=== PATIENT | male | born 1950 | race Caucasian/White ===

== ENCOUNTER 2018-01-29 15:46 | Inpatient (IN) | payer MEDICARE, OTHER ==
[2018-01-29 17:23] LABS: BASO % 0.2 % (0.0-1.0); HEMATOCRIT 29.8 % (42.0-52.0); HEMOGLOBIN 10.2 g/dl (14.0-18.0); LYMPH # 1.9 10^3/uL (1.5-4.5); MEAN CORPUSCULAR HEMOGLOBIN 33.1 pg (27.0-33.0); MEAN CORPUSCULAR HGB CONC 34.2 g/dl (32.0-36.5); MEAN CORPUSCULAR VOLUME 96.8 fl (80.0-96.0); MONO # 1.2 10^3/uL (0.0-0.8); NEUTROPHILS # 15.8 10^3/uL (1.8-7.7); NEUTROPHILS % 81.8 % (36.0-66.0); PLATELET COUNT, AUTOMATED 386 10^3/uL (150-450); RED BLOOD COUNT 3.08 10^6/uL (4.30-6.10); RED CELL DISTRIBUTION WIDTH 14.7 % (11.5-14.5); WHITE BLOOD COUNT 19.3 10^3/uL (4.0-10.0)
[2018-01-29 17:34] LABS: ANION GAP 15 MEQ/L (8-16); BLOOD UREA NITROGEN 82 MG/DL (7-18); CALCIUM LEVEL 8.5 MG/DL (8.8-10.2); CARBON DIOXIDE LEVEL 20 MEQ/L (21-32); CHLORIDE LEVEL 98 MEQ/L (98-107); CREATININE FOR GFR 6.14 MG/DL (0.70-1.30); GLOMERULAR FILTRATION RATE 9.7 (>49); GLUCOSE, FASTING 53 MG/DL (70-100); POTASSIUM SERUM 4.1 MEQ/L (3.5-5.1); SODIUM LEVEL 133 MEQ/L (136-145)
[2018-01-29] MEDS: NS 1,000 ML IV ×3 (18:02→21:25)
[2018-01-29 18:22] LABS: ALBUMIN 2.8 GM/DL (3.2-5.2); ALKALINE PHOSPHATASE 83 U/L (45-117); ALT/SGPT 132 U/L (12-78); AST/SGOT 151 U/L (7-37); BILIRUBIN,DIRECT 0.2 MG/DL (0.0-0.2); BILIRUBIN,TOTAL 0.4 MG/DL (0.2-1.0); TOTAL PROTEIN 6.3 GM/DL (6.4-8.2)
[2018-01-29 18:36] LABS: INR 1.15; PROTHROMBIN TIME 14.9 SECONDS (12.4-14.5)
[2018-01-29] MEDS ORDERED: ONDANSETRON 4MG/2ML VIAL (J2405) IV (19:45)
[2018-01-29] MEDS: NS 500 ML IV (20:00)
[2018-01-29] MEDS ORDERED: DEXTROSE 50% 50 ML SYRINGE IV (20:30)
[2018-01-29] MEDS ORDERED: NICOTINE 14 MG/24 HR TRANSDERMAL TD (20:30)
[2018-01-29] MEDS ORDERED: GLUCOSE 4 GM CHEW TABLET PO (20:30)
[2018-01-29] MEDS ORDERED: GLUCAGON FOR INJ 1 MG VIAL (J1610) SC (20:30)
[2018-01-29] MEDS: GABAPENTIN 300 MG CAP PO (23:33)
[2018-01-29] MEDS: HEPARIN SOD (PORCINE) 5000 UNITS/ML VIAL SC (23:34)
[2018-01-30] MEDS: NS 1,000 ML IV (05:44)
[2018-01-30 06:33] LABS: HEMATOCRIT 27.6 % (42.0-52.0); HEMOGLOBIN 9.3 g/dl (14.0-18.0); MEAN CORPUSCULAR HEMOGLOBIN 32.7 pg (27.0-33.0); MEAN CORPUSCULAR HGB CONC 33.7 g/dl (32.0-36.5); MEAN CORPUSCULAR VOLUME 97.2 fl (80.0-96.0); PLATELET COUNT, AUTOMATED 381 10^3/uL (150-450); RED BLOOD COUNT 2.84 10^6/uL (4.30-6.10); RED CELL DISTRIBUTION WIDTH 14.6 % (11.5-14.5); WHITE BLOOD COUNT 19.2 10^3/uL (4.0-10.0)
[2018-01-30 06:54] LABS: ALBUMIN 2.3 GM/DL (3.2-5.2); ALBUMIN/GLOBULIN RATIO 0.55 (1.00-1.93); ALKALINE PHOSPHATASE 88 U/L (45-117); ALT/SGPT 146 U/L (12-78); ANION GAP 12 MEQ/L (8-16); AST/SGOT 145 U/L (7-37); BILIRUBIN,DIRECT 0.2 MG/DL (0.0-0.2); BILIRUBIN,TOTAL 0.4 MG/DL (0.2-1.0); BLOOD UREA NITROGEN 83 MG/DL (7-18); CALCIUM LEVEL 8.1 MG/DL (8.8-10.2); CARBON DIOXIDE LEVEL 21 MEQ/L (21-32); CHLORIDE LEVEL 103 MEQ/L (98-107); CREATININE FOR GFR 4.81 MG/DL (0.70-1.30); GLOMERULAR FILTRATION RATE 12.9 (>49); GLUCOSE, FASTING 46 MG/DL (70-100); MAGNESIUM LEVEL 2.5 MG/DL (1.8-2.4); POTASSIUM SERUM 3.5 MEQ/L (3.5-5.1); SODIUM LEVEL 136 MEQ/L (136-145); TOTAL PROTEIN 6.5 GM/DL (6.4-8.2)
[2018-01-30 08:03] LABS: BEDSIDE GLUCOSE 55 MG/DL (80-115)
[2018-01-30 08:25] LABS: LACTIC ACID SEPSIS PROTOCOL 0.7 MMOL/L (0.4-2.0)
[2018-01-30] MEDS: CLOPIDOGREL 75 MG TAB PO (09:00)
[2018-01-30] MEDS: ATENOLOL 25 MG TAB PO (09:00)
[2018-01-30] MEDS: EZETIMIBE 10 MG TAB (ZETIA) PO (09:00)
[2018-01-30] MEDS: ATORVASTATIN 20 MG TAB PO (09:11)
[2018-01-30] MEDS: HEPARIN SOD (PORCINE) 5000 UNITS/ML VIAL SC ×2 (09:11→20:11)
[2018-01-30] MEDS: GABAPENTIN 300 MG CAP PO ×3 (09:11→20:12)
[2018-01-30] MEDS: TAMSULOSIN 0.4 MG CAP PO (09:11)
[2018-01-30] MEDS ORDERED: CEFTAROLINE FOSAMIL 600 MG in D5W MINI-BAG PLUS 50 ML IV (11:30)
[2018-01-30] MEDS: CEFTAROLINE FOSAMIL 300 MG in D5W 50 ML IV (13:00)
[2018-01-30] MEDS: ASPIRIN 81 MG ENTERIC TAB PO (14:44)
[2018-01-30] MEDS: amLODIPine 10 MG TAB PO (14:45)
[2018-01-30 15:29] LABS: HEPATITIS B SURFACE ANTIGEN NEGATIVE (NEGATIVE)
[2018-01-30 15:56] LABS: HEPATITIS B CORE ANTIBODY IGM NEGATIVE (NEGATIVE)
[2018-01-30 15:59] LABS: HEPATITIS A ANTIBODY IGM NEGATIVE (NEGATIVE)
[2018-01-30 17:12] LABS: BEDSIDE GLUCOSE 216 MG/DL (80-115)
[2018-01-30 17:20] LABS: BEDSIDE GLUCOSE 180 MG/DL (80-115)
[2018-01-30 17:20] LABS: BEDSIDE GLUCOSE 95 MG/DL (80-115)
[2018-01-30] MEDS: POTASSIUM CHLORIDE 10 MEQ SR TABLET PO (20:11)
[2018-01-30] MEDS: FINASTERIDE 5 MG TAB PO (20:12)
[2018-01-30] MEDS: PERCOCET 5MG/325MG TAB PO (20:12)
[2018-01-30] MEDS ORDERED: diphenhydrAMINE 25 MG CAP PO (21:00)
[2018-01-30 21:44] LABS: BEDSIDE GLUCOSE 321 MG/DL (80-115)
[2018-01-31] MEDS: CEFTAROLINE FOSAMIL 300 MG in D5W 50 ML IV (00:09)
[2018-01-31 04:03] LABS: HEMATOCRIT 28.9 % (42.0-52.0); HEMOGLOBIN 9.7 g/dl (14.0-18.0); MEAN CORPUSCULAR HEMOGLOBIN 32.8 pg (27.0-33.0); MEAN CORPUSCULAR HGB CONC 33.6 g/dl (32.0-36.5); MEAN CORPUSCULAR VOLUME 97.6 fl (80.0-96.0); PLATELET COUNT, AUTOMATED 443 10^3/uL (150-450); RED BLOOD COUNT 2.96 10^6/uL (4.30-6.10); RED CELL DISTRIBUTION WIDTH 14.7 % (11.5-14.5); WHITE BLOOD COUNT 19.3 10^3/uL (4.0-10.0)
[2018-01-31 04:23] LABS: ALBUMIN 2.3 GM/DL (3.2-5.2); ALKALINE PHOSPHATASE 97 U/L (45-117); ALT/SGPT 152 U/L (12-78); ANION GAP 10 MEQ/L (8-16); AST/SGOT 111 U/L (7-37); BILIRUBIN,DIRECT 0.2 MG/DL (0.0-0.2); BILIRUBIN,TOTAL 0.4 MG/DL (0.2-1.0); BLOOD UREA NITROGEN 79 MG/DL (7-18); CALCIUM LEVEL 8.4 MG/DL (8.8-10.2); CARBON DIOXIDE LEVEL 24 MEQ/L (21-32); CHLORIDE LEVEL 104 MEQ/L (98-107); CREATININE FOR GFR 2.31 MG/DL (0.70-1.30); GLUCOSE, FASTING 225 MG/DL (70-100); MAGNESIUM LEVEL 2.9 MG/DL (1.8-2.4); PHOSPHORUS LEVEL 3.1 MG/DL (2.5-4.9); POTASSIUM SERUM 3.8 MEQ/L (3.5-5.1); SODIUM LEVEL 138 MEQ/L (136-145); TOTAL PROTEIN 6.9 GM/DL (6.4-8.2)
[2018-01-31] MEDS: ASCORBIC ACID 500 MG TAB PO (07:53)
[2018-01-31] MEDS: TAMSULOSIN 0.4 MG CAP PO (07:53)
[2018-01-31] MEDS: ATORVASTATIN 20 MG TAB PO (07:53)
[2018-01-31] MEDS: ASPIRIN 81 MG ENTERIC TAB PO (07:53)
[2018-01-31] MEDS: FENOFIBRATE 145 MG TAB (TRICOR) PO (07:54)
[2018-01-31] MEDS: GABAPENTIN 300 MG CAP PO ×3 (07:54→20:18)
[2018-01-31] MEDS: ATENOLOL 25 MG TAB PO (07:54)
[2018-01-31] MEDS: EZETIMIBE 10 MG TAB (ZETIA) PO (07:54)
[2018-01-31] MEDS: amLODIPine 10 MG TAB PO (07:55)
[2018-01-31] MEDS: HEPARIN SOD (PORCINE) 5000 UNITS/ML VIAL SC ×2 (07:55→20:18)
[2018-01-31] MEDS: CLOPIDOGREL 75 MG TAB PO (07:55)
[2018-01-31] MEDS: HumaLOG INSULIN (NovoLOG) PER UNIT SC ×4 (07:56→22:16)
[2018-01-31] MEDS: PERCOCET 5MG/325MG TAB PO ×4 (07:56→20:18)
[2018-01-31 09:18] LABS: APPEARANCE, URINE CLEAR (CLEAR); BACTERIA, URINE AUTO 1+ (NEGATIVE); BILIRUBIN, URINE AUTO NEGATIVE (NEGATIVE); BLOOD, URINE BLOOD NEGATIVE (NEGATIVE); COLOR, URINE STRAW (YELLOW); GLUCOSE, URINE (UA) AUTO NEGATIVE (NEGATIVE); KETONE, URINE AUTO NEGATIVE (NEGATIVE); LEUKOCYTE ESTERASE, URINE AUTO NEGATIVE (NEGATIVE); MUCUS, URINE SMALL (NEGATIVE); NITRITE, URINE AUTO NEGATIVE (NEGATIVE); PROTEIN, URINE AUTO NEGATIVE (NEGATIVE); RBC, URINE AUTO 1 /HPF (0-3); SPECIFIC GRAVITY URINE AUTO 1.006 (1.002-1.035); SQUAMOUS EPITHELIAL CELL UR AU 0 /HPF (0-6); UROBILINOGEN, URINE AUTO 0.2 mg/dL (0.0-2.0); WBC, URINE AUTO 2 /HPF (0-3)
[2018-01-31 11:47] LABS: BEDSIDE GLUCOSE 227 MG/DL (80-115)
[2018-01-31] MEDS: NIACIN SR (NIASPAN) 500 MG TAB PO (12:28)
[2018-01-31] MEDS: CEFTAROLINE FOSAMIL 400 MG in D5W MINI-BAG PLUS 50 ML IV (12:29)
[2018-01-31] MEDS ORDERED: ALBUTEROL SULFATE 2.5 MG/0.5 ML INH NEB SOLN INH (14:00)
[2018-01-31] MEDS: IPRATROPIUM 0.5MG/ALBUTEROL 2.5MG INH SOL UD 3ML (DUONEB)(J7620) NEB ×3 (14:08→21:17)
[2018-01-31] MEDS: FINASTERIDE 5 MG TAB PO (20:18)
[2018-01-31 21:57] LABS: BEDSIDE GLUCOSE 221 MG/DL (80-115)
[2018-02-01] MEDS: CEFTAROLINE FOSAMIL 400 MG in D5W MINI-BAG PLUS 50 ML IV ×2 (00:34→12:26)
[2018-02-01 02:29] LABS: BEDSIDE GLUCOSE 289 MG/DL (80-115)
[2018-02-01] MEDS: PERCOCET 5MG/325MG TAB PO ×5 (04:03→21:28)
[2018-02-01 04:07] LABS: HEMATOCRIT 29.4 % (42.0-52.0); HEMOGLOBIN 9.9 g/dl (14.0-18.0); MEAN CORPUSCULAR HEMOGLOBIN 32.9 pg (27.0-33.0); MEAN CORPUSCULAR HGB CONC 33.7 g/dl (32.0-36.5); MEAN CORPUSCULAR VOLUME 97.7 fl (80.0-96.0); PLATELET COUNT, AUTOMATED 532 10^3/uL (150-450); RED BLOOD COUNT 3.01 10^6/uL (4.30-6.10); RED CELL DISTRIBUTION WIDTH 14.6 % (11.5-14.5)
[2018-02-01 04:29] LABS: ALBUMIN 2.1 GM/DL (3.2-5.2); ALBUMIN/GLOBULIN RATIO 0.43 (1.00-1.93); ALKALINE PHOSPHATASE 93 U/L (45-117); ALT/SGPT 125 U/L (12-78); ANION GAP 7 MEQ/L (8-16); AST/SGOT 56 U/L (7-37); BILIRUBIN,DIRECT 0.2 MG/DL (0.0-0.2); BILIRUBIN,TOTAL 0.4 MG/DL (0.2-1.0); BLOOD UREA NITROGEN 37 MG/DL (7-18); CALCIUM LEVEL 8.5 MG/DL (8.8-10.2); CARBON DIOXIDE LEVEL 27 MEQ/L (21-32); CHLORIDE LEVEL 109 MEQ/L (98-107); CREATININE FOR GFR 1.13 MG/DL (0.70-1.30); GLUCOSE, FASTING 201 MG/DL (70-100); MAGNESIUM LEVEL 2.4 MG/DL (1.8-2.4); SODIUM LEVEL 143 MEQ/L (136-145)
[2018-02-01 04:36] LABS: GLOMERULAR FILTRATION RATE > 60.0 (>49)
[2018-02-01 07:54] LABS: BEDSIDE GLUCOSE 205 MG/DL (80-115)
[2018-02-01] MEDS: IPRATROPIUM 0.5MG/ALBUTEROL 2.5MG INH SOL UD 3ML (DUONEB)(J7620) NEB ×4 (07:57→20:12)
[2018-02-01] MEDS: HEPARIN SOD (PORCINE) 5000 UNITS/ML VIAL SC ×2 (08:13→21:28)
[2018-02-01] MEDS: EZETIMIBE 10 MG TAB (ZETIA) PO (08:13)
[2018-02-01] MEDS: NIACIN SR (NIASPAN) 500 MG TAB PO (08:13)
[2018-02-01] MEDS: FENOFIBRATE 48 MG TAB (TRICOR) PO (08:14)
[2018-02-01] MEDS: ATENOLOL 25 MG TAB PO (08:14)
[2018-02-01] MEDS: ASPIRIN 81 MG ENTERIC TAB PO (08:14)
[2018-02-01] MEDS: CLOPIDOGREL 75 MG TAB PO (08:14)
[2018-02-01] MEDS: ATORVASTATIN 20 MG TAB PO (08:14)
[2018-02-01] MEDS: ASCORBIC ACID 500 MG TAB PO (08:14)
[2018-02-01] MEDS: TAMSULOSIN 0.4 MG CAP PO (08:14)
[2018-02-01] MEDS: amLODIPine 10 MG TAB PO (08:17)
[2018-02-01] MEDS: GABAPENTIN 300 MG CAP PO ×2 (08:17→21:28)
[2018-02-01] MEDS: HumaLOG INSULIN (NovoLOG) PER UNIT SC ×4 (08:18→21:00)
[2018-02-01] MEDS: NS 0.45% 1,000 ML IV (10:54)
[2018-02-01 11:39] LABS: BEDSIDE GLUCOSE 182 MG/DL (80-115)
[2018-02-01 17:59] LABS: BEDSIDE GLUCOSE 184 MG/DL (80-115)
[2018-02-01 21:27] LABS: BEDSIDE GLUCOSE 183 MG/DL (80-115)
[2018-02-01] MEDS: FINASTERIDE 5 MG TAB PO (21:28)
[2018-02-02] MEDS: CEFTAROLINE FOSAMIL 400 MG in D5W MINI-BAG PLUS 50 ML IV ×2 (02:38→12:49)
[2018-02-02 03:51] LABS: BEDSIDE GLUCOSE 169 MG/DL (80-115)
[2018-02-02 04:13] LABS: HEMATOCRIT 29.8 % (42.0-52.0); HEMOGLOBIN 9.9 g/dl (14.0-18.0); MEAN CORPUSCULAR HEMOGLOBIN 32.9 pg (27.0-33.0); MEAN CORPUSCULAR HGB CONC 33.2 g/dl (32.0-36.5); PLATELET COUNT, AUTOMATED 560 10^3/uL (150-450); RED BLOOD COUNT 3.01 10^6/uL (4.30-6.10); RED CELL DISTRIBUTION WIDTH 14.7 % (11.5-14.5); WHITE BLOOD COUNT 14.4 10^3/uL (4.0-10.0)
[2018-02-02 04:24] LABS: AMMONIA 37 uMOL/L (<32)
[2018-02-02 04:35] LABS: ALBUMIN 2.3 GM/DL (3.2-5.2); ALBUMIN/GLOBULIN RATIO 0.48 (1.00-1.93); ALKALINE PHOSPHATASE 87 U/L (45-117); ALT/SGPT 93 U/L (12-78); ANION GAP 8 MEQ/L (8-16); AST/SGOT 28 U/L (7-37); BILIRUBIN,DIRECT 0.2 MG/DL (0.0-0.2); BILIRUBIN,TOTAL 0.6 MG/DL (0.2-1.0); BLOOD UREA NITROGEN 23 MG/DL (7-18); CARBON DIOXIDE LEVEL 27 MEQ/L (21-32); CHLORIDE LEVEL 107 MEQ/L (98-107); CREATININE FOR GFR 0.95 MG/DL (0.70-1.30); GLOMERULAR FILTRATION RATE > 60.0 (>49); GLUCOSE, FASTING 148 MG/DL (70-100); MAGNESIUM LEVEL 1.6 MG/DL (1.8-2.4); PHOSPHORUS LEVEL 2.2 MG/DL (2.5-4.9); POTASSIUM SERUM 4.2 MEQ/L (3.5-5.1); SODIUM LEVEL 142 MEQ/L (136-145); TOTAL PROTEIN 7.1 GM/DL (6.4-8.2)
[2018-02-02] MEDS ORDERED: MORPHINE 4 MG/ML 1ML VIAL (J2270) IV (05:30)
[2018-02-02] MEDS: IPRATROPIUM 0.5MG/ALBUTEROL 2.5MG INH SOL UD 3ML (DUONEB)(J7620) NEB ×4 (07:29→20:00)
[2018-02-02] MEDS: HALOPERIDOL 0.5 MG TAB PO (07:30)
[2018-02-02] MEDS: HumaLOG INSULIN (NovoLOG) PER UNIT SC ×4 (07:30→21:24)
[2018-02-02 08:47] LABS: BEDSIDE GLUCOSE 182 MG/DL (80-115)
[2018-02-02] MEDS: GABAPENTIN 300 MG CAP PO ×2 (09:34→21:30)
[2018-02-02] MEDS: ASCORBIC ACID 500 MG TAB PO (09:35)
[2018-02-02] MEDS: TAMSULOSIN 0.4 MG CAP PO (09:36)
[2018-02-02] MEDS: ATORVASTATIN 20 MG TAB PO (09:37)
[2018-02-02] MEDS: NIACIN SR (NIASPAN) 500 MG TAB PO (09:38)
[2018-02-02] MEDS: ATENOLOL 25 MG TAB PO (09:38)
[2018-02-02] MEDS: CLOPIDOGREL 75 MG TAB PO (09:39)
[2018-02-02] MEDS: ASPIRIN 81 MG ENTERIC TAB PO (09:39)
[2018-02-02] MEDS: amLODIPine 10 MG TAB PO (09:40)
[2018-02-02] MEDS: FENOFIBRATE 48 MG TAB (TRICOR) PO (09:40)
[2018-02-02] MEDS: EZETIMIBE 10 MG TAB (ZETIA) PO (09:40)
[2018-02-02] MEDS: HEPARIN SOD (PORCINE) 5000 UNITS/ML VIAL SC ×2 (09:43→21:30)
[2018-02-02] MEDS: NS 0.45% 1,000 ML IV (09:44)
[2018-02-02 12:02] LABS: BEDSIDE GLUCOSE 173 MG/DL (80-115)
[2018-02-02] MEDS ORDERED: SLF 3 ML SYR IV (13:00)
[2018-02-02] MEDS: SLF 3 ML SYR IV ×2 (14:03→21:31)
[2018-02-02 16:56] LABS: BEDSIDE GLUCOSE 146 MG/DL (80-115)
[2018-02-02 21:22] LABS: BEDSIDE GLUCOSE 197 MG/DL (80-115)
[2018-02-02] MEDS: PERCOCET 5MG/325MG TAB PO (21:30)
[2018-02-02] MEDS: FINASTERIDE 5 MG TAB PO (21:30)
[2018-02-03] MEDS: CEFTAROLINE FOSAMIL 400 MG in D5W MINI-BAG PLUS 50 ML IV ×2 (00:40→12:42)
[2018-02-03] MEDS: SLF 3 ML SYR IV ×3 (05:48→21:12)
[2018-02-03 06:00] LABS: HEMATOCRIT 31.1 % (42.0-52.0); HEMOGLOBIN 10.2 g/dl (14.0-18.0); MEAN CORPUSCULAR HEMOGLOBIN 32.7 pg (27.0-33.0); MEAN CORPUSCULAR HGB CONC 32.8 g/dl (32.0-36.5); MEAN CORPUSCULAR VOLUME 99.7 fl (80.0-96.0); PLATELET COUNT, AUTOMATED 572 10^3/uL (150-450); RED BLOOD COUNT 3.12 10^6/uL (4.30-6.10); RED CELL DISTRIBUTION WIDTH 14.6 % (11.5-14.5); WHITE BLOOD COUNT 11.1 10^3/uL (4.0-10.0)
[2018-02-03 06:18] LABS: ALBUMIN 2.3 GM/DL (3.2-5.2); ALBUMIN/GLOBULIN RATIO 0.47 (1.00-1.93); ALKALINE PHOSPHATASE 85 U/L (45-117); ALT/SGPT 71 U/L (12-78); ANION GAP 6 MEQ/L (8-16); AST/SGOT 23 U/L (7-37); BILIRUBIN,DIRECT 0.2 MG/DL (0.0-0.2); BILIRUBIN,TOTAL 0.5 MG/DL (0.2-1.0); BLOOD UREA NITROGEN 18 MG/DL (7-18); C REACTIVE PROTEIN QUANTITATIV 8.09 MG/DL (0.00-0.30); CALCIUM LEVEL 8.8 MG/DL (8.8-10.2); CARBON DIOXIDE LEVEL 26 MEQ/L (21-32); CHLORIDE LEVEL 112 MEQ/L (98-107); CREATININE FOR GFR 0.87 MG/DL (0.70-1.30); GLOMERULAR FILTRATION RATE > 60.0 (>49); GLUCOSE, FASTING 137 MG/DL (70-100); MAGNESIUM LEVEL 1.6 MG/DL (1.8-2.4); PHOSPHORUS LEVEL 2.7 MG/DL (2.5-4.9); POTASSIUM SERUM 4.4 MEQ/L (3.5-5.1); SODIUM LEVEL 144 MEQ/L (136-145); TOTAL PROTEIN 7.2 GM/DL (6.4-8.2)
[2018-02-03] MEDS: IPRATROPIUM 0.5MG/ALBUTEROL 2.5MG INH SOL UD 3ML (DUONEB)(J7620) NEB ×4 (07:56→19:41)
[2018-02-03] MEDS: HumaLOG INSULIN (NovoLOG) PER UNIT SC ×5 (08:33→21:06)
[2018-02-03] MEDS: TAMSULOSIN 0.4 MG CAP PO (08:34)
[2018-02-03] MEDS: ASPIRIN 81 MG ENTERIC TAB PO (08:34)
[2018-02-03] MEDS: CLOPIDOGREL 75 MG TAB PO (08:34)
[2018-02-03] MEDS: ATORVASTATIN 20 MG TAB PO (08:34)
[2018-02-03] MEDS: HEPARIN SOD (PORCINE) 5000 UNITS/ML VIAL SC ×2 (08:34→21:12)
[2018-02-03] MEDS: ASCORBIC ACID 500 MG TAB PO (08:34)
[2018-02-03] MEDS: FENOFIBRATE 48 MG TAB (TRICOR) PO (08:34)
[2018-02-03] MEDS: GABAPENTIN 300 MG CAP PO ×2 (08:35→21:12)
[2018-02-03] MEDS: EZETIMIBE 10 MG TAB (ZETIA) PO (08:35)
[2018-02-03] MEDS: NIACIN SR (NIASPAN) 500 MG TAB PO (08:35)
[2018-02-03] MEDS: ATENOLOL 25 MG TAB PO (08:36)
[2018-02-03] MEDS: amLODIPine 10 MG TAB PO (08:36)
[2018-02-03] MEDS: PERCOCET 5MG/325MG TAB PO ×3 (08:36→21:11)
[2018-02-03 11:44] LABS: BEDSIDE GLUCOSE 208 MG/DL (80-115)
[2018-02-03] MEDS: MAG SULF 1GM/100ML (MAG RUN) 1 GM in APPROPRIATE DILUENT 1 EA IV (15:21)
[2018-02-03] MEDS: LOSARTAN 50 MG TAB PO (15:21)
[2018-02-03 16:48] LABS: BEDSIDE GLUCOSE 165 MG/DL (80-115)
[2018-02-03] MEDS: FINASTERIDE 5 MG TAB PO (21:11)
[2018-02-04] MEDS: CEFTAROLINE FOSAMIL 400 MG in D5W MINI-BAG PLUS 50 ML IV ×2 (00:26→12:46)
[2018-02-04 03:01] LABS: BEDSIDE GLUCOSE 137 MG/DL (80-115)
[2018-02-04] MEDS: PERCOCET 5MG/325MG TAB PO ×5 (03:51→22:23)
[2018-02-04] MEDS: SLF 3 ML SYR IV ×3 (05:15→20:22)
[2018-02-04 06:49] LABS: HEMATOCRIT 31.2 % (42.0-52.0); HEMOGLOBIN 10.1 g/dl (14.0-18.0); MEAN CORPUSCULAR HEMOGLOBIN 32.6 pg (27.0-33.0); MEAN CORPUSCULAR HGB CONC 32.4 g/dl (32.0-36.5); MEAN CORPUSCULAR VOLUME 100.6 fl (80.0-96.0); PLATELET COUNT, AUTOMATED 560 10^3/uL (150-450); RED CELL DISTRIBUTION WIDTH 14.5 % (11.5-14.5); WHITE BLOOD COUNT 11.6 10^3/uL (4.0-10.0)
[2018-02-04 07:12] LABS: ALBUMIN 2.4 GM/DL (3.2-5.2); ALBUMIN/GLOBULIN RATIO 0.48 (1.00-1.93); ALKALINE PHOSPHATASE 89 U/L (45-117); ALT/SGPT 65 U/L (12-78); ANION GAP 8 MEQ/L (8-16); AST/SGOT 22 U/L (7-37); BILIRUBIN,DIRECT 0.2 MG/DL (0.0-0.2); BILIRUBIN,TOTAL 0.4 MG/DL (0.2-1.0); BLOOD UREA NITROGEN 22 MG/DL (7-18); C REACTIVE PROTEIN QUANTITATIV 5.15 MG/DL (0.00-0.30); CALCIUM LEVEL 8.8 MG/DL (8.8-10.2); CARBON DIOXIDE LEVEL 24 MEQ/L (21-32); CHLORIDE LEVEL 112 MEQ/L (98-107); CREATININE FOR GFR 0.91 MG/DL (0.70-1.30); GLOMERULAR FILTRATION RATE > 60.0 (>49); GLUCOSE, FASTING 132 MG/DL (70-100); MAGNESIUM LEVEL 1.7 MG/DL (1.8-2.4); PHOSPHORUS LEVEL 3.7 MG/DL (2.5-4.9); POTASSIUM SERUM 4.1 MEQ/L (3.5-5.1); SODIUM LEVEL 144 MEQ/L (136-145); TOTAL PROTEIN 7.4 GM/DL (6.4-8.2)
[2018-02-04] MEDS: IPRATROPIUM 0.5MG/ALBUTEROL 2.5MG INH SOL UD 3ML (DUONEB)(J7620) NEB ×4 (08:00→20:00)
[2018-02-04] MEDS: GABAPENTIN 300 MG CAP PO ×2 (08:01→20:21)
[2018-02-04] MEDS: HumaLOG INSULIN (NovoLOG) PER UNIT SC ×4 (08:01→20:13)
[2018-02-04] MEDS: HEPARIN SOD (PORCINE) 5000 UNITS/ML VIAL SC ×2 (08:01→20:21)
[2018-02-04] MEDS: EZETIMIBE 10 MG TAB (ZETIA) PO (08:02)
[2018-02-04] MEDS: ASPIRIN 81 MG ENTERIC TAB PO (08:02)
[2018-02-04] MEDS: ASCORBIC ACID 500 MG TAB PO (08:02)
[2018-02-04] MEDS: NIACIN SR (NIASPAN) 500 MG TAB PO (08:02)
[2018-02-04] MEDS: TAMSULOSIN 0.4 MG CAP PO (08:02)
[2018-02-04] MEDS: LOSARTAN 50 MG TAB PO (08:02)
[2018-02-04] MEDS: ATORVASTATIN 20 MG TAB PO (08:02)
[2018-02-04] MEDS: ATENOLOL 25 MG TAB PO (08:03)
[2018-02-04] MEDS: CLOPIDOGREL 75 MG TAB PO (08:03)
[2018-02-04] MEDS: amLODIPine 10 MG TAB PO (08:03)
[2018-02-04] MEDS: FENOFIBRATE 48 MG TAB (TRICOR) PO (08:03)
[2018-02-04 11:57] LABS: BEDSIDE GLUCOSE 139 MG/DL (80-115)
[2018-02-04 17:25] LABS: BEDSIDE GLUCOSE 130 MG/DL (80-115)
[2018-02-04] MEDS: FINASTERIDE 5 MG TAB PO (20:21)
[2018-02-04 21:02] LABS: BEDSIDE GLUCOSE 118 MG/DL (80-115)
[2018-02-05] MEDS: CEFTAROLINE FOSAMIL 400 MG in D5W MINI-BAG PLUS 50 ML IV (00:53)
[2018-02-05] MEDS: SLF 3 ML SYR IV (05:20)
[2018-02-05 06:09] LABS: HEMOGLOBIN 10.2 g/dl (14.0-18.0); MEAN CORPUSCULAR HGB CONC 31.9 g/dl (32.0-36.5); MEAN CORPUSCULAR VOLUME 100.3 fl (80.0-96.0); PLATELET COUNT, AUTOMATED 619 10^3/uL (150-450); RED BLOOD COUNT 3.19 10^6/uL (4.30-6.10); RED CELL DISTRIBUTION WIDTH 14.2 % (11.5-14.5); WHITE BLOOD COUNT 9.5 10^3/uL (4.0-10.0)
[2018-02-05 06:33] LABS: ALBUMIN 2.4 GM/DL (3.2-5.2); ALBUMIN/GLOBULIN RATIO 0.48 (1.00-1.93); ALKALINE PHOSPHATASE 90 U/L (45-117); ALT/SGPT 55 U/L (12-78); ANION GAP 5 MEQ/L (8-16); AST/SGOT 27 U/L (7-37); BILIRUBIN,DIRECT 0.1 MG/DL (0.0-0.2); BILIRUBIN,TOTAL 0.4 MG/DL (0.2-1.0); BLOOD UREA NITROGEN 23 MG/DL (7-18); C REACTIVE PROTEIN QUANTITATIV 3.97 MG/DL (0.00-0.30); CALCIUM LEVEL 9.1 MG/DL (8.8-10.2); CARBON DIOXIDE LEVEL 28 MEQ/L (21-32); CHLORIDE LEVEL 110 MEQ/L (98-107); CREATININE FOR GFR 1.03 MG/DL (0.70-1.30); GLOMERULAR FILTRATION RATE > 60.0 (>49); GLUCOSE, FASTING 117 MG/DL (70-100); MAGNESIUM LEVEL 1.5 MG/DL (1.8-2.4); PHOSPHORUS LEVEL 3.4 MG/DL (2.5-4.9); POTASSIUM SERUM 4.3 MEQ/L (3.5-5.1); SODIUM LEVEL 143 MEQ/L (136-145); TOTAL PROTEIN 7.4 GM/DL (6.4-8.2)
[2018-02-05] MEDS: PERCOCET 5MG/325MG TAB PO ×2 (06:49→11:00)
[2018-02-05] MEDS: HumaLOG INSULIN (NovoLOG) PER UNIT SC ×2 (07:30→12:00)
[2018-02-05] MEDS: HEPARIN SOD (PORCINE) 5000 UNITS/ML VIAL SC (08:51)
[2018-02-05] MEDS: amLODIPine 10 MG TAB PO (08:52)
[2018-02-05] MEDS: NIACIN SR (NIASPAN) 500 MG TAB PO (08:52)
[2018-02-05] MEDS: ATENOLOL 25 MG TAB PO (08:52)
[2018-02-05] MEDS: ATORVASTATIN 20 MG TAB PO (08:52)
[2018-02-05] MEDS: EZETIMIBE 10 MG TAB (ZETIA) PO (08:52)
[2018-02-05] MEDS: GABAPENTIN 300 MG CAP PO (08:53)
[2018-02-05] MEDS: CLOPIDOGREL 75 MG TAB PO (08:53)
[2018-02-05] MEDS: ASCORBIC ACID 500 MG TAB PO (08:53)
[2018-02-05] MEDS: ASPIRIN 81 MG ENTERIC TAB PO (08:53)
[2018-02-05] MEDS: LOSARTAN 50 MG TAB PO (08:53)
[2018-02-05] MEDS: TAMSULOSIN 0.4 MG CAP PO (08:53)
[2018-02-05] MEDS: FENOFIBRATE 48 MG TAB (TRICOR) PO (08:53)
[2018-02-05] MEDS: MAG SULF 1GM/100ML (MAG RUN) 1 GM in APPROPRIATE DILUENT 1 EA IV ×2 (08:54→09:54)
[2018-02-05 11:54] LABS: BEDSIDE GLUCOSE 236 MG/DL (80-115)
== END 2018-02-05 12:30 | disposition home or self-care (01) | DRG 683 ==
LOC: M MSPAV 02-02 17:21 → M PCU 01-30 15:45 → M ED 15:46 → M ED INP 19:44
DX: N17.9 Acute kidney failure, unspecified (principal); L03.115 Cellulitis of right lower limb; I73.9 Peripheral vascular disease, unspecified; E87.6 Hypokalemia; G47.33 Obstructive sleep apnea (adult) (pediatric); N40.1 Benign prostatic hyperplasia with lower urinary tract symptoms; R41.0 Disorientation, unspecified; E11.9 Type 2 diabetes mellitus without complications; I10 Essential (primary) hypertension; E78.00 Pure hypercholesterolemia, unspecified; F17.210 Nicotine dependence, cigarettes, uncomplicated; Z79.84 Long term (current) use of oral hypoglycemic drugs; Z79.899 Other long term (current) drug therapy; Z79.02 Long term (current) use of antithrombotics/antiplatelets; Z99.89 Dependence on other enabling machines and devices

== ENCOUNTER 2018-05-27 10:56 | Day surgery (SDC) | payer MEDICARE, OTHER ==
[~2018-05-27 10:56] MED LIST: ACETAMINOPHEN 325 MG TAB PO; PHENYLEPHRINE HCL 10 % OPHTH. SOL 5ML OD; PROPARACAINE 0.5% OPHTH SOL 15ML OD
[2018-05-27] MEDS ORDERED: LIDOCAINE 1% MDV 20ML VIAL SQ (11:15)
[2018-05-27] MEDS: OFLOXACIN 0.3 % (OCUFLOX) OPTH SOL 5ML OD (11:58)
[2018-05-27] MEDS: CYCLOPENTOLATE 2% OPHTH SOLN 2ML BTL OD (11:58)
[2018-05-27] MEDS: TROPICAMIDE 1% OPHTH SOLN 2ML OD (11:59)
[2018-05-27] MEDS: LIDOCAINE 3.5 % 1ML OPHTH TOPICAL GEL OU (11:59)
[2018-05-27] MEDS: PHENYLEPHRINE 2.5% OPHTH SOL 2ML OD (11:59)
[2018-05-27 12:11] LABS: BEDSIDE GLUCOSE 119 MG/DL (80-115)
[2018-05-27] MEDS: POVIDONE-IODINE 5% OPHTH PREP SOL 30ML As Ordered (12:11)
[2018-05-27] MEDS: LIDOCAINE 1% SDV 5 ML VIAL As Ordered (12:13)
[2018-05-27] MEDS: BALANCED SALT IRRIGATION SOLUTION 500ML BAG (FOR OR EYE MACHINE) As Ordered (12:14)
[2018-05-27] MEDS: HEALON DUET (HEALON 10MG/ML 0.55ML & HEALON ENDOCOAT 30MG/ML 0.85ML) As Ordered (12:21)
[2018-05-27] MEDS: CEFUROXIME 1MG/0.1ML INTRACAMERAL INJ As Ordered (12:21)
[2018-05-27] MEDS ORDERED: MIDAZOLAM INJ 2 MG/2 ML VIAL (J2250) As Ordered (12:22)
[2018-05-27] MEDS ORDERED: fentaNYL 100 MCG/2 ML INJECTION (J3010) As Ordered (12:22)
[2018-05-27] MEDS ORDERED: TRIMETHOBENZAMIDE 300 MG CAP PO (13:00)
[2018-05-27] MEDS: KETOROLAC 0.5% OPHTH SOLN OD (13:17)
[2018-05-27] MEDS: AcetaZOLAMIDE 500 MG ER CAP PO (13:17)
== END 2018-05-27 13:35 | disposition home or self-care (01) ==
LOC: M SDC 10:56
DX: H25.11 Age-related nuclear cataract, right eye (principal); E11.9 Type 2 diabetes mellitus without complications; I10 Essential (primary) hypertension; E78.5 Hyperlipidemia, unspecified; G47.30 Sleep apnea, unspecified; N40.0 Benign prostatic hyperplasia without lower urinary tract symptoms; Z79.02 Long term (current) use of antithrombotics/antiplatelets; Z79.82 Long term (current) use of aspirin; Z79.899 Other long term (current) drug therapy
CPT/HCPCS: 66984

== ENCOUNTER 2018-06-17 08:37 | Day surgery (SDC) | payer MEDICARE, OTHER ==
[~2018-06-17 08:37] MED LIST changes: -PHENYLEPHRINE HCL 10 % OPHTH. SOL 5ML OD; +PHENYLEPHRINE HCL 10 % OPHTH. SOL 5ML OS; -PROPARACAINE 0.5% OPHTH SOL 15ML OD; +PROPARACAINE 0.5% OPHTH SOL 15ML OS
[2018-06-17] MEDS: CYCLOPENTOLATE 2% OPHTH SOLN 2ML BTL OS (08:50)
[2018-06-17] MEDS: PHENYLEPHRINE 2.5% OPHTH SOL 2ML OS (08:55)
[2018-06-17] MEDS: TROPICAMIDE 1% OPHTH SOLN 2ML OS (09:00)
[2018-06-17] MEDS: OFLOXACIN 0.3 % (OCUFLOX) OPTH SOL 5ML OS (09:05)
[2018-06-17] MEDS: LIDOCAINE 3.5 % 1ML OPHTH TOPICAL GEL OU (09:10)
[2018-06-17 09:33] LABS: BEDSIDE GLUCOSE 106 MG/DL (80-115)
[2018-06-17] MEDS ORDERED: ATENOLOL 25 MG TAB As Ordered (09:34)
[2018-06-17] MEDS ORDERED: ATENOLOL 25 MG TAB PO (09:45)
[2018-06-17] MEDS ORDERED: MIDAZOLAM INJ 2 MG/2 ML VIAL (J2250) As Ordered ×2 (09:51→11:26)
[2018-06-17] MEDS ORDERED: fentaNYL 100 MCG/2 ML INJECTION (J3010) As Ordered ×2 (09:51→11:22)
[2018-06-17] MEDS: POVIDONE-IODINE 5% OPHTH PREP SOL 30ML As Ordered (11:15)
[2018-06-17] MEDS: LIDOCAINE 1% SDV 5 ML VIAL As Ordered (11:22)
[2018-06-17] MEDS: BALANCED SALT IRRIGATION SOLUTION 500ML BAG (FOR OR EYE MACHINE) As Ordered (11:22)
[2018-06-17] MEDS: CEFUROXIME 1MG/0.1ML INTRACAMERAL INJ As Ordered (11:31)
[2018-06-17] MEDS: ACETYLCHOLINE OPHTH SOLN 1% 2ML (MIOCHOL-E) As Ordered ×2 (11:33)
[2018-06-17] MEDS: HEALON DUET (HEALON 10MG/ML 0.55ML & HEALON ENDOCOAT 30MG/ML 0.85ML) As Ordered (11:33)
[2018-06-17] MEDS ORDERED: ONDANSETRON 4MG/2ML VIAL (J2405) IV (12:00)
[2018-06-17] MEDS ORDERED: TRIMETHOBENZAMIDE 300 MG CAP PO (12:00)
[2018-06-17] MEDS: AcetaZOLAMIDE 500 MG ER CAP PO (12:22)
[2018-06-17] MEDS: KETOROLAC 0.5% OPHTH SOLN OS (12:22)
== END 2018-06-17 12:38 | disposition home or self-care (01) ==
LOC: M SDC 08:37
DX: H25.12 Age-related nuclear cataract, left eye (principal); E11.9 Type 2 diabetes mellitus without complications; G47.30 Sleep apnea, unspecified; Z79.82 Long term (current) use of aspirin; Z79.02 Long term (current) use of antithrombotics/antiplatelets; I10 Essential (primary) hypertension; E78.5 Hyperlipidemia, unspecified
CPT/HCPCS: 66984

== ENCOUNTER → 2022-07-12 | Outpatient (CLI) | payer MEDICARE, OTHER ==
[~2022-07-12] MED LIST changes: -ACETAMINOPHEN 325 MG TAB PO; +AMLO1TAB25 PO; +ASCO500T PO; +ASPI-161 PO; +ATEN25TA PO; +ATOR80TA59 PO; +BENA25CA4 PO; +CLOP75TA2 PO; +DOXY-350 PO; +FINA5TAB2 PO; +FISH100049 PO; +FLOM0.4C39 PO; +GABA-1171 PO; +GABA-282 PO; +GLIP-162 PO; +LOSA100T5 PO; +LOSARTAN-HCTZ; +METF10004 PO; +MULT1TAB18 PO; +NIAC500T64 PO; +OXYC1TAB23 PO; -PHENYLEPHRINE HCL 10 % OPHTH. SOL 5ML OS; -PROPARACAINE 0.5% OPHTH SOL 15ML OS; +TAMSULOSIN; +TRAM50TA2 PO; +TRIC145T22 PO; +VITA50005 PO; +VITATAB21 PO; +ZETI10TA16 PO
== END ==
LOC: M RAD 13:29
PROVIDERS: ATTEND Physician Assistant
DX: I70.611 Atherosclerosis of nonbiological bypass graft(s) of the extremities with intermittent claudication, right leg (principal); I70.212 Atherosclerosis of native arteries of extremities with intermittent claudication, left leg

== ENCOUNTER 2025-02-02 09:25 | Observation (INO) | payer MEDICARE, OTHER ==
[~2025-02-02] VITALS: Ht 182.9 cm; Wt 92.4 kg
[~2025-02-02 09:25] MED LIST changes: -ASPI-161 PO; +ASPI-615 PO; -DOXY-350 PO; +DOXY-440 PO; +EZET10TA58 PO; +GABA-1172 PO; -GABA-282 PO; -ZETI10TA16 PO
[2025-02-02] MEDS: NS 500 ML IV ONE ×2 (10:13)
[2025-02-02 10:20] LABS: BASO % 0.2 % (0.0-1.0); HEMATOCRIT 40.7 % (42.0-52.0); HEMOGLOBIN 12.9 g/dl (13.5-17.5); LYMPH # 0.9 10^3/uL (1.5-5.0); LYMPH % 14.3 % (24.0-44.0); MEAN CORPUSCULAR HEMOGLOBIN 30.5 pg (27.0-33.0); MEAN CORPUSCULAR HGB CONC 31.7 g/dl (32.0-36.5); MEAN CORPUSCULAR VOLUME 96.2 fl (80.0-96.0); MONO # 0.6 10^3/uL (0.0-0.8); MONO % 8.6 % (2.0-8.0); NEUTROPHILS # 4.9 10^3/uL (1.5-8.5); NEUTROPHILS % 76.6 % (36.0-66.0); PLATELET COUNT, AUTOMATED 193 10^3/uL (150-450); RED BLOOD COUNT 4.23 10^6/uL (4.30-6.10); WHITE BLOOD COUNT 6.4 10^3/uL (4.0-10.0)
[2025-02-02 10:44] LABS: CREATININE FOR GFR 1.43 MG/DL (0.70-1.30); GLOMERULAR FILTRATION RATE 51.2 (>42); MAGNESIUM LEVEL 1.9 MG/DL (1.8-2.4); POTASSIUM SERUM 3.9 MMOL/L (3.5-5.1)
[2025-02-02 10:47] LABS: THYROID STIMULATING HORMONE 1.901 uIU/ML (0.55-4.78)
[2025-02-02] MEDS ORDERED: DEXTROSE 50% 50ML SYRINGE IV PRN (14:55)
[2025-02-02] MEDS ORDERED: MOM 30ML SUSPENSION UDC PO PRN (14:55)
[2025-02-02] MEDS ORDERED: MAALOX 30 ML SUSP *UDC PO PRN (14:55)
[2025-02-02] MEDS ORDERED: GLUCAGON INJ 1MG VIAL SC PRN (14:55)
[2025-02-02] MEDS ORDERED: ACETAMINOPHEN 325 MG TAB PO PRN (14:55)
[2025-02-02] MEDS ORDERED: GLUCOSE 4 GM CHEW PO PRN (14:55)
[2025-02-02 16:24] VITALS: BP 133/62; TEMP 96.6; O2SAT 95
[2025-02-02] MEDS: INSULIN LISPRO (NovoLOG) PER UNIT SC SCH ×2 (17:48→21:00)
[2025-02-02] MEDS ORDERED: JARD1TAB PO (18:31)
[2025-02-02] MEDS ORDERED: FINA5TAB2 PO (18:31)
[2025-02-02] MEDS ORDERED: THERTAB52 PO (18:31)
[2025-02-02] MEDS ORDERED: TORS20TA2 PO (18:31)
[2025-02-02] MEDS ORDERED: FAMO1TAB11 PO (18:31)
[2025-02-02] MEDS ORDERED: ENTR1TAB PO (18:31)
[2025-02-02] MEDS ORDERED: ALBU8.5H INH (18:31)
[2025-02-02] MEDS ORDERED: ELIQ5TAB PO (18:31)
[2025-02-02] MEDS ORDERED: BIMA01SOL OU (18:31)
[2025-02-02] MEDS ORDERED: POTA-151 PO (18:31)
[2025-02-02] MEDS ORDERED: METO1TAB87 PO (18:36)
[2025-02-02] MEDS ORDERED: GLIP1TAB11 PO (18:36)
[2025-02-02] MEDS ORDERED: MIDO5TA PO (18:36)
[2025-02-02] MEDS ORDERED: GABA-1171 PO (18:36)
[2025-02-02] MEDS ORDERED: MIRA3350 PO (18:38)
[2025-02-02] MEDS ORDERED: SENN1TAB85 PO (18:38)
[2025-02-02] MEDS ORDERED: HOME MED LIST COMPLETE! XX SCH (18:40)
[2025-02-02] MEDS ORDERED: ALBUTEROL 90 MCG/ACT 8GM HFA INHALER INH PRN (19:40)
[2025-02-02] MEDS ORDERED: PILL CUTTER 1 EACH XX PRN (19:50)
[2025-02-02 20:00] VITALS: BP 123/64; TEMP 97.1; O2SAT 99
[2025-02-02] MEDS: DOCUSATE SODIUM 100MG CAPSULE PO SCH (20:53)
[2025-02-02] MEDS: ATORVASTATIN 20 MG TAB PO SCH (20:53)
[2025-02-02] MEDS: GABAPENTIN 100 MG CAP PO SCH (20:54)
[2025-02-02] MEDS: TAMSULOSIN 0.4 MG CAP PO SCH (20:54)
[2025-02-02] MEDS: FAMOTIDINE 20 MG TAB PO SCH (20:55)
[2025-02-02] MEDS: LATANOPROST 0.005% OPHTH SOLN 2.5 ML OU SCH (21:00)
[2025-02-02] MEDS: APIXABAN 5 MG TAB (ELIQUIS) PO SCH (21:49)
[2025-02-03] VITALS: BP 123/64; TEMP 97.2; O2SAT 99
[2025-02-03 04:00] VITALS: BP 100/54; TEMP 98.8; O2SAT 95
[2025-02-03 07:24] LABS: BASO % 0.3 % (0.0-1.0); HEMATOCRIT 35.2 % (42.0-52.0); HEMOGLOBIN 11.2 g/dl (13.5-17.5); LYMPH % 17.8 % (24.0-44.0); MEAN CORPUSCULAR HEMOGLOBIN 30.4 pg (27.0-33.0); MEAN CORPUSCULAR HGB CONC 31.8 g/dl (32.0-36.5); MEAN CORPUSCULAR VOLUME 95.7 fl (80.0-96.0); MONO # 0.6 10^3/uL (0.0-0.8); MONO % 9.9 % (2.0-8.0); NEUTROPHILS # 4.1 10^3/uL (1.5-8.5); NEUTROPHILS % 71.7 % (36.0-66.0); PLATELET COUNT, AUTOMATED 170 10^3/uL (150-450); RED BLOOD COUNT 3.68 10^6/uL (4.30-6.10); WHITE BLOOD COUNT 5.8 10^3/uL (4.0-10.0)
[2025-02-03 07:45] LABS: BLOOD UREA NITROGEN 30 MG/DL (9-23); CALCIUM LEVEL 8.4 MG/DL (8.3-10.6); CARBON DIOXIDE LEVEL 30 MMOL/L (20-31); CHLORIDE LEVEL 105 MMOL/L (98-107); CREATININE FOR GFR 1.15 MG/DL (0.70-1.30); GLOMERULAR FILTRATION RATE > 60.0 (>42); GLUCOSE, FASTING 135 MG/DL (74-106); POTASSIUM SERUM 3.9 MMOL/L (3.5-5.1); SODIUM LEVEL 142 MMOL/L (136-145)
[2025-02-03 08:00] VITALS: BP 93/50; TEMP 98; O2SAT 95
[2025-02-03 08:06] VITALS: BP 93/50; TEMP 97.7; O2SAT 96
[2025-02-03] MEDS: EZETIMIBE 10MG TABLET (ZETIA) PO SCH (08:27)
[2025-02-03] MEDS: MIDODRINE 5 MG TAB PO SCH ×2 (08:27→12:45)
[2025-02-03] MEDS: MULTIVITAMINS/MINERALS THERAP 1 TAB PO SCH (08:27)
[2025-02-03] MEDS: FINASTERIDE 5MG TAB PO SCH (08:27)
[2025-02-03] MEDS: CLOPIDOGREL 75 MG TAB PO SCH (08:29)
[2025-02-03] MEDS: ASCORBIC ACID 500 MG TAB PO SCH (08:29)
[2025-02-03] MEDS: GABAPENTIN 100 MG CAP PO SCH (08:30)
[2025-02-03 12:00] VITALS: BP 101/63
[2025-02-03 12:05] VITALS: BP 101/55; TEMP 97.1; O2SAT 95
[2025-02-03] MEDS ORDERED: ONDANSETRON 4MG 2ML VIAL IV PRN (13:25)
[2025-02-03] MEDS ORDERED: MIDO5TA PO (13:35)
[2025-02-03] MEDS ORDERED: TORS20TA2 PO (13:35)
== END 2025-02-03 15:15 | disposition home health service (06) ==
LOC: EDBD 09:25 → M ED 09:25 → M ED INP 09:26 → M PCU 16:16
PROVIDERS: ADMIT Internal Medicine; ATTEND Internal Medicine
DX: R55 Syncope and collapse (principal); I11.9 Hypertensive heart disease without heart failure; N18.9 Chronic kidney disease, unspecified; I25.10 Atherosclerotic heart disease of native coronary artery without angina pectoris; Z95.1 Presence of aortocoronary bypass graft; Z95.2 Presence of prosthetic heart valve; Z98.61 Coronary angioplasty status; G47.33 Obstructive sleep apnea (adult) (pediatric); I50.30 Unspecified diastolic (congestive) heart failure; I48.91 Unspecified atrial fibrillation; Z79.01 Long term (current) use of anticoagulants; I73.9 Peripheral vascular disease, unspecified; E11.9 Type 2 diabetes mellitus without complications; E78.5 Hyperlipidemia, unspecified; E66.9 Obesity, unspecified; N40.0 Benign prostatic hyperplasia without lower urinary tract symptoms; Z79.899 Other long term (current) drug therapy; Z79.84 Long term (current) use of oral hypoglycemic drugs
CPT/HCPCS: 36415; 80048; 83735; 84443; 85025; 93005; 93041; 94760; 96374; 96376; 97116; 97161; 97530; 99285; G0378; J1815